=== PATIENT | female | born 1965 | race Caucasian/White ===

== ENCOUNTER 2021-04-12 06:07 | Day surgery (SDC) | payer BC ==
[2021-04-04 12:18] LABS: BASOPHILS % (AUTO) 1.2 % (0.0-5.0); EOSINOPHILS % (AUTO) 1.6 % (0.0-8.0); HEMATOCRIT 43.9 % (36-48); MEAN CORPUSCULAR HEMOGLOBIN 28.2 pg (27.0-33.0); MEAN CORPUSCULAR HGB CONC 32.8 g/dL (32.0-36.0); MEAN CORPUSCULAR VOLUME 85.9 fL (79-99); MONOCYTES % (AUTO) 5.7 % (3.0-13.0); NEUTROPHILS % (AUTO) 61.2 % (40.0-77.0); PLATELET COUNT (AUTO) 215 K/uL (130-400); RED BLOOD CELL COUNT(AUTO) 5.11 MIL/uL (4.00-5.50); RED CELL DISTRIBUTION WIDTH 14.1 % (11.0-15.5); WHITE BLOOD COUNT (AUTO) 5.8 K/uL (4.8-10.8)
[2021-04-11 10:30] VITALS: BP 129/64
[~2021-04-12] VITALS: Ht 165.1 cm; Wt 97.0 kg
[2021-04-12] VITALS (24 sets, daily range): BP systolic 103–147; BP diastolic 48–78
[~2021-04-12 06:07] MED LIST: ACETAMINOPHEN EXTRA STRENGTH 500 MG TABLET PO SCH; CEFAZOLIN 3GM /D5W 100ML 100 ML IV SCH; ENOXAPARIN SODIUM 30 MG/0.3 ML SQ SCH; ESTR-3 PO; METRONIDAZOLE 500MG/100ML BAG 100 ML IVPB SCH; PHENAZOPYRIDINE HCL 200 MG TABLET PO SCH
[2021-04-12] MEDS ORDERED: ENOXAPARIN SODIUM 30 MG/0.3 ML SQ ONE (06:24)
[2021-04-12] MEDS ORDERED: PHENAZOPYRIDINE HCL 200 MG TABLET ONE (06:24)
[2021-04-12] MEDS ORDERED: LACTATED RINGERS 1000ML 1,000 ML IV ONE (06:24)
[2021-04-12] MEDS: CEFAZOLIN SODIUM 1 GM VIAL ONE ×2 (06:33→08:15)
[2021-04-12] MEDS ORDERED: METRONIDAZOLE 500MG/100ML BAG 100 ML ONE (06:48)
[2021-04-12] MEDS ORDERED: BUPIVACAINE/PF 0.25% 30ML VIAL IJ ONE (07:07)
[2021-04-12] MEDS ORDERED: FENTANYL CITRATE PF 50 MCG/1 ML 2ML VIAL ONE ×2 (07:34→10:50)
[2021-04-12] MEDS ORDERED: PROPOFOL 10 MG/ML 20ML VIAL IV ONE (07:34)
[2021-04-12] MEDS ORDERED: LIDOCAINE PF 100MG/5ML (2%) SYRINGE 5ML ONE (07:34)
[2021-04-12] MEDS ORDERED: ROCURONIUM 10MG/1ML SYR 10 MG/ML ML ONE (07:34)
[2021-04-12] MEDS ORDERED: SUCCINYLCHOLINE 200MG/10ML SYR ONE (07:34)
[2021-04-12] MEDS ORDERED: EPHEDRINE SULFATE 50 MG/ML AMPULE ONE (08:17)
[2021-04-12] MEDS ORDERED: MEPERIDINE-PF 25 MG/ML SYG ONE ×3 (09:59→11:45)
[2021-04-12] MEDS ORDERED: LIDOCAINE 1%-EPI 1:100,000 20 ML VIAL IJ ONE (10:19)
[2021-04-12] MEDS ORDERED: NEOSTIGMINE 5MG/5ML SYR IV ONE (10:23)
[2021-04-12] MEDS ORDERED: KETOROLAC TROMETHAMINE 30MG/ML ONE (10:23)
[2021-04-12] MEDS ORDERED: GLYCOPYRROLATE 1 MG/5 ML SYRINGE ONE (10:23)
[2021-04-12] MEDS ORDERED: ONDANSETRON HCL 4 MG/2 ML VIAL ONE (10:23)
[2021-04-12] MEDS ORDERED: LORAZEPAM 1 MG TABLET PO PRN (13:45)
[2021-04-12] MEDS ORDERED: LORAZEPAM 2 MG/ML 1 ML VIAL IVP PRN (13:45)
[2021-04-12] MEDS ORDERED: SODIUM CHLORIDE 0.9% 10 ML VIAL IVP PRN (13:45)
[2021-04-12] MEDS ORDERED: ONDANSETRON HCL 4 MG/2 ML VIAL IVP PRN (13:45)
[2021-04-12] MEDS ORDERED: METRONIDAZOLE 500MG/100ML BAG 100 ML IVPB SCH (14:00)
[2021-04-12] MEDS ORDERED: CEFAZOLIN 3GM /D5W 100ML 100 ML IV SCH (14:00)
[2021-04-12] MEDS ORDERED: ACETAMINOPHEN EXTRA STRENGTH 500 MG TABLET PO SCH (14:00)
== END 2021-04-12 16:30 | disposition home or self-care (01) ==
LOC: DAH 06:07
PROVIDERS: ATTEND Obstetrics & Gynecology
DX: N92.0 Excessive and frequent menstruation with regular cycle (principal); Z20.822 Contact with and (suspected) exposure to COVID-19; N39.3 Stress incontinence (female) (male); N72 Inflammatory disease of cervix uteri; N88.8 Other specified noninflammatory disorders of cervix uteri; N84.0 Polyp of corpus uteri; D25.0 Submucous leiomyoma of uterus; D25.1 Intramural leiomyoma of uterus; D50.0 Iron deficiency anemia secondary to blood loss (chronic); Z98.51 Tubal ligation status; Z82.3 Family history of stroke; Z80.42 Family history of malignant neoplasm of prostate; Z82.0 Family history of epilepsy and other diseases of the nervous system; Z72.89 Other problems related to lifestyle; Z79.899 Other long term (current) drug therapy; Z98.890 Other specified postprocedural states
CPT/HCPCS: 57288; 58571; S2900; 36415; 85025; 86850; 86900; 86901; 96365; 96366; A4344; C9803; J0330; J0690; J1650; J1885; J2001; J2175; J2405; J2704; J2710; J3010; J3490; J7030; J7120; U0003

== ENCOUNTER → 2023-02-20 | Outpatient (CLI) | payer BC ==
[~2023-02-20] MED LIST changes: -ACETAMINOPHEN EXTRA STRENGTH 500 MG TABLET PO SCH; -CEFAZOLIN 3GM /D5W 100ML 100 ML IV SCH; -ENOXAPARIN SODIUM 30 MG/0.3 ML SQ SCH; -METRONIDAZOLE 500MG/100ML BAG 100 ML IVPB SCH; -PHENAZOPYRIDINE HCL 200 MG TABLET PO SCH
== END | disposition home or self-care (01) ==
LOC: RAH 15:32
PROVIDERS: ATTEND Obstetrics & Gynecology
DX: Z12.31 Encounter for screening mammogram for malignant neoplasm of breast (principal)
CPT/HCPCS: 77067

== ENCOUNTER → 2024-03-17 | Outpatient (CLI) | payer BC | END | disposition home or self-care (01) | LOC: RAH 16:12 | PROVIDERS: ATTEND Obstetrics & Gynecology | DX: Z12.31 Encounter for screening mammogram for malignant neoplasm of breast (principal) | CPT/HCPCS: 77067 ==